=== PATIENT | male | born 1950 | race African-American/Black ===

== ENCOUNTER 2019-06-14 14:24 | Emergency (ER) | payer BC, MEDICAID ==
[~2019-06-14] VITALS: Ht 177.8 cm; Wt 73.0 kg
[2019-06-14 14:58] LABS: BASOPHILS % 0.2 % (0.0-2.0); EOSINOPHILS % 0.2 % (0.0-5.0); HEMATOCRIT. 40.4 % (42.0-52.0); HEMOGLOBIN. 13.3 g/dL (14.0-18.0); LYMPHOCYTES % 10.7 % (20.0-50.0); MEAN CORPUSCULAR HEMOGLOBIN 28.6 pg (28.0-32.0); MEAN CORPUSCULAR VOLUME 86.9 fL (80.0-94.0); MEAN PLATELET VOLUME 6.7 fl (7.4-10.4); MONOCYTES % 5.1 % (2.0-8.0); NEUTROPHILS % 83.8 % (40.0-76.0); PLATELET 413 x1000/uL (130-400); RED BLOOD CELL COUNT 4.65 mill/uL (4.7-6.1); RED CELL DISTRIBUTION WIDTH 15.9 % (11.6-14.6)
[2019-06-14] MEDS ORDERED: TETANUS, DIPHTHERIA, PERTUSSIS VAC/PF 0.5ML (>7YR OLD) IM ONE (15:00)
[2019-06-14] MEDS ORDERED: LIDOCAINE HCL 1% 20ML VIAL (Pyxis) INJ INFIL ONE (15:00)
[2019-06-14 15:04] LABS: CHLORIDE 107 mEq/L (98-107)
[2019-06-14 15:05] LABS: PROTHROMBIN TIME 11.2 sec (9.6-11.0)
[2019-06-14 18:39] VITALS: BP 144/76
== END 2019-06-14 18:43 | disposition home or self-care (01) ==
LOC: ER 15:01
DX: S01.511A Laceration without foreign body of lip, initial encounter (principal); E11.9 Type 2 diabetes mellitus without complications; I10 Essential (primary) hypertension; Y04.0XXA Assault by unarmed brawl or fight, initial encounter; Y93.89 Activity, other specified; Y92.488 Other paved roadways as the place of occurrence of the external cause
CPT/HCPCS: 12015; 36415; 70450; 71045; 72125; 73030; 73060; 80053; 85025; 85610; 90471; 90715; 99285; J3490